=== PATIENT | female | born 2005 | race Caucasian/White ===

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

== ENCOUNTER → 2024-01-15 | Emergency (ER) | payer OTHER, SELFPAY ==
[~2024-01-15] MED LIST: ACETAMINOPHEN 325 MG TABLET ONE
[2024-01-15 17:21] LABS: Absolute Lymphocytes (CBC) 2.3 K/uL (0.7-4.9); Hematocrit 39.8 % (36.0-45.0); Lymphocytes % 23.3 % (15.3-44.8); MPV 9.4 fL (7.6-11.3); Platelets 296 thou/uL (152-406); RBC Red Blood Cell Count 4.67 M/uL (3.86-4.86)
[2024-01-15 17:26] LABS: Protime INR 1.12
[2024-01-15 17:48] LABS: ALT/SGPT 51 U/L (13-56); AST/SGOT 21 U/L (15-37); Albumin 3.2 g/dL (3.4-5.0); Alkaline Phosphatase 91 U/L (45-117); BUN Blood Urea Nitrogen 9 mg/dL (7-18); Bicarbonate 24 mEq/L (21-32); Bilirubin Direct 0.1 mg/dL (0-0.2); Bilirubin Indirect, Calculated 0.3 mg/dL (0.2-0.8); Bilirubin Total 0.4 mg/dL (0.2-1.0); Glomerular Filtration Rate 110 ml/min (=/>90); Glucose Level 126 mg/dL (74-106); Potassium 3.8 mEq/L (3.5-5.1); Protein, Total 7.4 g/dL (6.4-8.2); Sodium Level 138 mEq/L (136-145)
[2024-01-15 18:15] LABS: Barbiturates NEGATIVE (NEGATIVE); Benzodiazepines NEGATIVE (NEGATIVE); Cocaine NEGATIVE (NEGATIVE); METHAMPHETAM NEGATIVE (NEGATIVE); Methadone NEGATIVE (NEGATIVE); Opiates NEGATIVE (NEGATIVE); Phencyclidine NEGATIVE (NEGATIVE); THC Cannibis NEGATIVE (NEGATIVE)
[2024-01-15 18:22] LABS: Specific Gravity 1.025 (1.005-1.030)
--- NOTE | 2024-01-15 21:37 | EDPHYS ---
Physician Documentation [facility] Name: Cheryl Tracy Age: 18 yrs Sex: Female : 2005 Arrival Date: 01/15/2024 Time: 16:19 Bed IW10 Private MD: ED Physician Abisai Zamora HPI: 01/15 16:21 This 18 yrs old Female presents to ER via Unassigned with complaints of suicidal ms3 ideation. 16:21 18-year-old female with no past medical history presents to the emergency department ms3 after a verbal argument with her mother. [place] [employer] was concerned with statements patient made and [facility] PD was called to the scene. Patient stated to the mental health deputy that if she goes back she will cut her throat with a knife and if that does not work she will take medications she has available at her house. Patient states she currently does want to and states she was slit her wrist and overdose if that did not work. Patient denies any alleviating or inciting factors.. Historical: - Allergies: 16:33 No Known Allergies; ll1 - PMHx: 16:26 adhd; anxiety/depression (Tonsillectomy); ll1 - PSHx: 16:26 Tonsillectomy; ll1 16:33 wisdom teeth removed; ll1 - Immunization history:: Adult Immunizations up to date. - Social history:: Smoking status: Patient denies any tobacco usage or history of. ROS: 16:21 Constitutional: Negative for fever, and chills. Neck: Negative for injury, pain, and ms3 swelling, Cardiovascular: Negative for chest pain, and palpitations. Respiratory: Negative for shortness of breath, cough, wheezing, and pleuritic chest pain, Abdomen/GI: Negative for abdominal pain, nausea, vomiting, diarrhea, and constipation, MS/Extremity: Negative for injury and deformity, Skin: Negative for injury, rash, and discoloration, Exam: 16:21 Constitutional: This is a well developed, well nourished patient who is awake, alert, ms3 and in no acute distress. Head/Face: Normocephalic, atraumatic. Neck: Trachea midline, no cervical lymphadenopathy. Supple, full range of motion without nuchal rigidity, or vertebral point tenderness. No Meningismus. Chest/axilla: Normal chest wall appearance and motion. Nontender with no deformity. Cardiovascular: Regular rate and rhythm with a normal S1 and S2. No gallops, murmurs, or rubs. Normal PMI, no JVD. No pulse deficits. Respiratory: Lungs have equal breath sounds bilaterally, clear to auscultation and percussion. No rales, rhonchi or wheezes noted. No increased work of breathing, no retractions or nasal flaring. Abdomen/GI: Soft, non-tender, with normal bowel sounds. No distension or tympany. No guarding or rebound. No evidence of tenderness throughout. Back: No spinal tenderness. No costovertebral tenderness. Full range of motion. Skin: Warm, dry with normal turgor. Normal color with no rashes, no lesions, and no evidence of cellulitis. MS/ Extremity: Pulses equal, no cyanosis. Neurovascular intact. Full, normal range of motion. 16:21 Psych: Behavior/mood is pleasant, cooperative, Affect is calm, Oriented to person, place, time, Patient having thoughts of suicide. Plan for suicide is Slit wrist or overdose with medications 17:36 ECG was reviewed by the Attending Physician. ms3 Vital Signs: 16:34 Weight 117.93 kg; Height 5 ft. 1 in. ; ll1 17:41 BP 128 / 68; Pulse 74; Resp 16; Temp 98; Pulse Ox 100% on R/A; 9 02 00:17 BP 126 / 93 LA Sitting (auto/lg); Pulse 81; Resp 17; Temp 97.5(O); Pulse Ox 100% on R/A;kmf 02 16:34 Body Mass Index 49.13 (117.93 kg, 154.94 cm) ll1 MDM: 01/15 16:20 Patient medically screened. ms3 16:21 Differential diagnosis: acute psychotic break, depression, Situational reaction. ms3 17:55 Transition of care: After a detail discussion of the patient's case, care is ms3 transferred to Nichelle Griffin [facility]. 21:34 Data reviewed: vital signs, nurses notes. Consideration of Admission/Observation kb Escalation of care including admission/observation considered. pt will be transferred to inpatient psychiatric facility. Management of patient was discussed with the following: Behavioral Health Provider: [facility] evaluated pt and recommends inpatient psych treatment. Historians other than the Patient: Law enforcement: [facility] [place] . Counseling: I had a detailed discussion with the patient and/or guardian regarding the historical points, exam findings, and any diagnostic results supporting the discharge/admit diagnosis, lab results, the need to transfer to another facility. ED course: Pt in agreement with inpatient treatment, will be voluntary . 01/16 00:01 ED course: Pt accepted for transfer to [place]. jennifer 01/15 16:20 Order name: Acetaminophen; Complete Time: 17:56 ms3 01/15 16:20 Order name: BMP; Complete Time: 17:56 ms3 01/15 16:20 Order name: CBC with Diff; Complete Time: 17:56 ms3 01/15 16:20 Order name: Ethanol; Complete Time: 17:56 ms3 01/15 16:20 Order name: Hepatic Function; Complete Time: 17:56 ms3 01/15 16:20 Order name: Protime (+inr); Complete Time: 17:56 ms3 01/15 16:20 Order name: Ptt, Activated; Complete Time: 17:56 ms3 01/15 16:20 Order name: Salicylate; Complete Time: 17:56 ms3 01/15 16:20 Order name: Urine Drug Screen; Complete Time: 18:17 ms3 01/15 17:56 Order name: Test, Urine; Complete Time: 18:22 ms3 01/15 16:20 Order name: EKG; Complete Time: 16:21 ms3 01/15 16:20 Order name: EKG - Nurse/Tech; Complete Time: 17:31 ms3 01/15 16:20 Order name: IV Saline Lock; Complete Time: 17:03 ms3 01/15 16:20 Order name: Labs collected and sent; Complete Time: 17:03 ms3 01/15 16:20 Order name: O2 Per Protocol; Complete Time: 17:31 ms3 01/15 16:20 Order name: O2 Sat Monitoring; Complete Time: 17:31 ms3 01/15 16:20 Order name: Suicide Precautions; Complete Time: 17:31 ms3 01/15 16:20 Order name: Suicide Screening ([place]); Complete Time: 17:31 ms3 EC/20 17:36 Rate is 99 beats/min. Rhythm is regular. QRS [place] is Normal. MI interval is normal. QRS ms3 interval is normal. QT interval is normal. Clinical impression: Normal ECG. Interpreted by me. Reviewed by me. Administered Medications: 21:51 Drug: Acetaminophen PO 650 mg PO once Route: PO; jj7 22:30 Follow up: Response: Marked relief of symptoms jj7 Disposition Summary: 01/15/24 21:36 Transfer Ordered Notes: Transfer Location: [facility] Reason: Higher level of care kb Condition: Stable kb Problem: new kb Symptoms: are unchanged kb Accepting Physician: Dr Hodges(01/16/24 00:56) jj7 Diagnosis - Suicidal ideations kb Discharge Instructions: - Discharge Summary Sheet ty Forms: - Medication Reconciliation Form kb - SBAR form ty Signatures: Dispatcher [employer] EDMS Nichelle Griffin, HEALTHCARE SOCIAL WORKER-C HEALTHCARE SOCIAL WORKER-Marisela Garcia, RN RN ll1 Abisai Zamora DO DO ms3 Rhina Laughlin RN RN jj7 Corrections: (The following items were deleted from the chart) 01/16 00:01 01/15 21:36 Dr jennifer rodriguez 01/16 00:56 00:01 Dr Carroll rodriguez jj7
--- NOTE | 2024-01-15 21:37 | ER ---
Nurse's Notes [facility] [place] Name: Cheryl Tracy Age: 18 yrs Sex: Female : 2005 Arrival Date: 01/15/2024 Time: 16:19 Bed IW10 Private MD: Diagnosis: Suicidal ideations Presentation: 01/15 16:24 Chief complaint: Patient states: SI, plans to cut throat or take a lot of pills. Mom ll1 stresses her out. History of anxiety and depression. + CINDY. Coronavirus screen: Client denies travel out of the [place] in the last 14 days. At this time, the client does not indicate any symptoms associated with coronavirus-19. Ebola Screen: Patient denies travel to an Ebola-affected area in the 21 days before illness onset. Initial Sepsis Screen: Does the patient meet any 2 criteria? No. Patient's initial sepsis screen is negative. Does the patient have a suspected source of infection? No. Patient's initial sepsis screen is negative. Risk Assessment: Do you want to hurt yourself or someone else? Patient reports desire/thoughts of hurting themselves or someone else. Provider notified. Onset of symptoms was January 08, 2024. 16:24 Method Of Arrival: Law Enforcement: [facility] 16:24 Acuity: JORI 2 ll1 Historical: - Allergies: 16:33 No Known Allergies; ll1 - PMHx: 16:26 adhd; anxiety/depression (Tonsillectomy); ll1 - PSHx: 16:26 Tonsillectomy; ll1 16:33 wisdom teeth removed; ll1 - Immunization history:: Adult Immunizations up to date. - Social history:: Smoking status: Patient denies any tobacco usage or history of. Screenin:35 [facility] ED Fall Risk Assessment (Adult) History of falling in the last 3 months, ph including since admission No falls in past 3 months (0 pts). Abuse screen: Denies threats or abuse. Denies injuries from another. Nutritional screening: No deficits noted. Tuberculosis screening: No symptoms or risk factors identified. Assessment: 16:20 General: Appears in no apparent distress. comfortable, well groomed, Behavior is ph cooperative, appropriate for age. Pain: Denies pain. Neuro: Level of Consciousness is awake, alert, obeys commands, Oriented to person, place, time, situation. Cardiovascular: Capillary refill < 3 seconds in bilateral fingers Patient's skin is warm and dry. Respiratory: Airway is patent Respiratory effort is even, unlabored. Derm: Skin is pink, warm \\T\\ dry. 17:20 Reassessment: SI precautions in place. Sitter at bedside. Airway is patent, mb9 respirations are even and unlabored. 18:20 Reassessment: SI precautions in place. Sitter at bedside. Airway is patent, mb9 respirations are even and unlabored. 19:08 Reassessment: ASSUMED CARE OF PT. PT LYING IN BED. NO PAIN OR DISTRESS. NO NEEDS AT [facility] THIS TIME. 19:39 Reassessment: [facility] WITH [facility] AT BEDSIDE SPEAKING WITH PT. PT SMILING AN [facility] COOPERATIVE. 21:30 Reassessment: Patient and/or family updated on plan of care and expected duration. Pain jj7 level reassessed. Patient is alert, oriented x 3, equal unlabored respirations, skin warm/dry/pink. 23:30 Reassessment: Patient is alert, oriented x 3, equal unlabored respirations, skin jj7 warm/dry/pink. 23:33 Reassessment: REPORT GIVEN TO DESIRE GALICIA AT [facility]. PT GOT jj7 ACCEPTANCE. 01/16 00:25 Reassessment: [facility] AT BEDSIDE TO TRANSFER PT. jj7 Psych: 01/15 16:20 [place] Suicide Severity Screening: In the past month, have you wished you were ph or wished you could go to sleep and not wake up? Patient responds "yes." "In the past month, have you actually had any thoughts of killing yourself?" Patient responds "yes." "In your lifetime, have you ever done anything, started to do anything, or prepared to do anything to end your life?" Patient responds "no.". Subjective: Patient's mood is elevated, Delusions are denied, Hallucinations are denied Having thoughts of suicide. Plan for suicide is slitting throat or taking pills. Objective: Patient is cooperative, Speech is rambling, Affect is appropriate, Patient has mutilated themselves by N/A. Interventions: Removed personal items and placed in bag. Searched person for dangerous items. Urine collected and sent for urine drug test. Pt unable to wear paper scrubs d/t sizes available. Safety Checks: Personal items have been removed. Door is open. No visitors are present at this time. Pt denies substance abuse. Commitment: Patient will be a voluntary commitment. 19:32 [place] Suicide Severity Screening: In the past month, have you wished you were jj7 or wished you could go to sleep and not wake up? Patient responds "yes." "In the past month, have you actually had any thoughts of killing yourself?" Patient responds "yes." "In your lifetime, have you ever done anything, started to do anything, or prepared to do anything to end your life?" Patient responds "no.". Subjective: Patient's mood is elevated, Delusions are denied, Hallucinations are denied Having thoughts of suicide. Plan for suicide is CUT HER THROAT OR TAKE LOTS OF PILLS. Objective: Patient is cooperative, Speech is normal, Affect is appropriate. Safety Checks: Door is open. No visitors are present at this time. Pt denies substance abuse. Vital Signs: 16:34 Weight 117.93 kg; Height 5 ft. 1 in. ; ll1 17:41 BP 128 / 68; Pulse 74; Resp 16; Temp 98; Pulse Ox 100% on R/A; mb9 01/16 00:17 BP 126 / 93 LA Sitting (auto/lg); Pulse 81; Resp 17; Temp 97.5(O); Pulse Ox 100% on R/A;kmf 01/15 16:34 Body Mass Index 49.13 (117.93 kg, 154.94 cm) ll1 ED Course: 01/15 16:19 Patient arrived in ED. bd 16:20 Abisai Zamora DO is Attending Physician. ms3 16:26 Annie Mckeon, RN is Primary Nurse. ph 16:26 Triage completed. ll1 16:27 Arm band placed on Patient placed in an exam room, on a stretcher. ll1 17:04 Acetaminophen Sent. bc6 17:04 BMP Sent. bc6 17:04 CBC with Diff Sent. bc6 17:04 Ethanol Sent. bc6 17:04 Hepatic Function Sent. bc6 17:04 Protime (+inr) Sent. bc6 17:04 Ptt, Activated Sent. bc6 17:04 Salicylate Sent. bc6 17:04 Urine Drug Screen Sent. bc6 17:31 Urine Drug Screen Sent. ph 17:31 Salicylate Sent. ph 17:31 Hepatic Function Sent. ph 17:31 Ethanol Sent. ph 17:31 Acetaminophen Sent. ph 17:31 BMP Sent. ph 17:37 Patient has correct armband on for positive identification. PO fluids given. Verbal ph reassurance given. 17:56 Nichelle Griffin FNP-C is PHCP. ms3 18:20 [facility]. bd 18:32 No provider procedures requiring assistance completed. mb9 18:33 contacted [facility] to have a screener evaluate pt. bd 19:10 Report given to GRAYSON HAMPTON. mb9 21:04 Faxed patient Information to [facility] [place] [place] and [facility]. ty 21:04 patient acceptance [id number] at [place]. ty 23:14 Faxed Over Patient information for transfer to [facility]. ty 23:26 Contacted by [place] for nurse to nurse. ty 01/16 00:10 EMS contacted for patient transport, accepted ETA 10 Min. ty 00:29 IV discontinued, intact, bleeding controlled, No redness/swelling at site. Pressure j7 dressing applied. Administered Medications: 01/15 21:51 Drug: Acetaminophen PO 650 mg PO once Route: PO; jj7 22:30 Follow up: Response: Marked relief of symptoms 7 Medication: 17:37 VIS not applicable for this client. ph Outcome: 21:36 ER care complete, transfer ordered by . jennifer 01/16 00:29 Condition: good j7 00:30 Transferred by ground EMS [facility]. to other acute care facility: [address] Transfer form completed. 00:30 Patient left the ED. pf1 Signatures: Nichelle Griffin FNP-C FNP-Eun Ca Patricia, RN RN ph Marisela Garcia RN RN ll1 Abisai Zamora DO DO ms3 Rhina Laughlin RN RN jSara Davis RN RN mb9 Imani Tran RN RN pf1 Aurora Walker [facility] Padmaja Leonard [facility] Aly Maharaj ty Corrections: (The following items were deleted from the chart) 02/20 18:20 17:20 Reassessment: SI precautions in place. Sitter at bedside. Airway is patent, mb9 respirations are even and unlabored. mb9 01/16 00:34 01/15 23:14 Faxed Over Patient information for transfer to [facility]. ty ty 01/16 00:56 00:29 Transferred by ground EMS [facility]. to other acute care facility: [address] Transfer form completed. j7 02:50 00:56 Patient left the ED. [facility] pf1
[2024-01-16 01:16] VITALS: BP 126/93; TEMP 97.5; O2SAT 100
== END ==
LOC: ER 16:19
DX: R45.851 Suicidal ideations (principal)
CPT/HCPCS: 36415; 80048; 80076; 80143; 80179; 80307; 81025; 82077; 85025; 85610; 85730; 93005